=== PATIENT | female | born 1960 | race Caucasian/White ===

== ENCOUNTER 2021-01-27 06:01 | Day surgery (SDC) | payer OTHER ==
[2021-01-27] MEDS ORDERED: Lactated Ringers 1,000 ML IV SCH (06:30)
[2021-01-27] MEDS ORDERED: DIPRIVAN 200 MG/20 ML IV ONE (07:54)
[2021-01-27] MEDS ORDERED: Versed 2 MG/2 ML Injection ONE (07:56)
[2021-01-27] MEDS ORDERED: Lactated Ringers 1,000 ML IV ONE (08:01)
[2021-01-27 08:48] VITALS: O2SAT 97
[2021-01-27 08:57] VITALS: BP 149/79; PULSE 81
--- NOTE | 2021-01-27 14:12 | OP ---
SURGERY DATE/TIME: 01/27/2021 0800 PREOPERATIVE DIAGNOSIS: Screening exam. POSTOPERATIVE DIAGNOSIS: Normal colon. PROCEDURE: Colonoscopy. SURGEON: Dr. Vargas. ANESTHESIA: MAC. Medications given by anesthesia department. HISTORY: The patient is a 60-year-old white female presenting now for screening colonoscopy. She reports there is a family history of an aunt with colon cancer. The patient was felt the need to have endoscopic evaluation. She was appraised of the risks of the procedure including the risk of perforation, phlebitis, untoward reaction to medication, bleeding and missed lesions. The patient verbalized her understanding and desired to have the procedure performed. DESCRIPTION OF PROCEDURE: The patient was given the medications by the anesthesia department. She had continuous pulse oximetry, ECG monitoring, intermittent blood pressure monitoring during the examination. She was placed in the left lateral decubitus position. A digital rectal examination was performed and revealed normal anal sphincter tone and no masses. The flexible Olympus pediatric colonoscope was used to intubate the rectum. A view of the colon was developed sequentially to the cecum. Upon insertion and withdrawal, including a retroflex view in the rectum, no mucosal lesions were encountered. The scope was removed from the patient who tolerated the procedure well and was sent back to OP recovery in good condition. The prep was noted to be good.
== END 2021-01-27 09:07 | disposition home or self-care (01) ==
LOC: SDC 06:01
PROVIDERS: ATTEND Family Medicine
DX: Z12.11 Encounter for screening for malignant neoplasm of colon (principal); Z80.0 Family history of malignant neoplasm of digestive organs; E11.9 Type 2 diabetes mellitus without complications; Z79.899 Other long term (current) drug therapy
CPT/HCPCS: 82947; J2250; J2704

== ENCOUNTER 2022-08-28 06:11 | Day surgery (SDC) | payer OTHER ==
[~2022-08-28 06:11] MED LIST: Marcaine Mpf 0.5% Vial 30 Ml ONE; Xylocaine 1% Vial 30 ML PF IJ ONE
[2022-08-28] MEDS ORDERED: CEFAZOLIN 2 GM-D5W BAG** 2 GM/50 ML ML IV SCH (06:30)
[2022-08-28] MEDS ORDERED: Lactated Ringers 1,000 ML IV SCH (06:30)
[2022-08-28 06:37] LABS: Hemoglobin 12.5 g/dL (12.0-16.0); Mean Corpuscular Hemoglobin 28.9 pg (26-32); Mean Corpuscular Hgb Concent. 32.9 g/dL (32-36); Mean Platelet Volume 9.6 fL (7.5-11.0); Platelet Count 273 x10^3/uL (150-450); Red Blood Count 4.32 x10^6/uL (4.1-5.4); Red Cell Distribution Width 12.3 % (11.5-14.0); White Blood Count 10.4 x10^3/uL (4.0-10.5)
[2022-08-28 06:51] LABS: ALBUMIN 4.3 g/dL (3.5-5.0); ALKALINE PHOSPHATASE 49 U/L (38-126); ANION GAP 16.1 MEQ/L (5-15); BLOOD UREA NITROGEN 16 mg/dL (7-17); CHLORIDE 105 mmol/L (98-107); Calcium 9.1 mg/dL (8.4-10.2); Carbon Dioxide 23 mmol/L (22-30); Creatinine 1 0.59 mg/dL (0.52-1.04); EST GLOMERULAR FILTRATION RATE > 60.0 ML/MIN; Glucose 131 mg/dL (74-106); Potassium 4.1 mmol/L (3.5-5.1); SGOT/AST 30 U/L (14-36); SGPT/ALT 31 U/L (0-35); SODIUM 140 mmol/L (137-145); Total Protein 7.7 g/dL (6.3-8.2)
[2022-08-28 06:53] LABS: INR 0.91 (0.8-3.0); PTT 26.9 SECONDS (25.1-36.5)
[2022-08-28] MEDS ORDERED: DIPRIVAN 200 MG/20 ML IV ONE (07:03)
[2022-08-28] MEDS ORDERED: Versed 2 MG/2 ML Injection ONE (07:09)
[2022-08-28] MEDS ORDERED: SUBLIMAZE 100 MCG/2 ML ONE (07:10)
--- NOTE | 2022-08-28 09:08 | XRAY ---
Indication: Right great toe exostectomy with interphalangeal arthrodesis. Intraoperative fluoroscopy provided for 1 minute 5 seconds. 12 digital spot images submitted for interpretation demonstrates excision 1st IP joint medial heterotopic ossification. Ultimate arthrodesis with single screw traversing 1st IP joint. Correlate with intraoperative findings/report.
[2022-08-28 09:14] VITALS: O2SAT 94
[2022-08-28 09:16] VITALS: BP 147/98; PULSE 72
--- NOTE | 2022-08-28 10:18 | XRAY ---
One minute and 5 seconds of fluoroscopy was used in surgery for a right great toe exostectomy with interphalangeal arthrodesis.
--- NOTE | 2022-08-28 12:28 | OP ---
SURGERY DATE/TIME: 08/28/2022 0704 PREOPERATIVE DIAGNOSES: 1) Osteochondroma distal phalanx right hallux. 2) Osteoarthritis interphalangeal joint right hallux. 3) Pain right hallux. POSTOPERATIVE DIAGNOSES: 1) Osteochondroma distal phalanx right hallux. 2) Osteoarthritis interphalangeal joint right hallux. 3) Pain right hallux. 4) Tophaceous gout right interphalangeal joint. PROCEDURE: Excision of bone tumor, exostectomy distal phalanx; possible interphalangeal joint arthrodesis right great toe. SURGEON: Vargas Terrell DPM. DEPUTY COUNTY COUNSEL: None. ANESTHESIA: Monitored anesthesia care plus intraoperative block. See injectables for details. HEMOSTASIS: Ankle tourniquet set to 250 mm of Mercury for a total of 38 total tourniquet minutes. ESTIMATED BLOOD LOSS: Minimal. INJECTABLES: 10 cc of 1:1 mixture of 1% lidocaine plain and 0.5% bupivacaine plain injected in a hallux block-type fashion. INDICATION FOR SURGERY: Birgit is a very pleasant 62-year-old female well known to my practice for a significant amount of pain to the first interphalangeal joint of the right hallux. The patient had a significant amount of pain. X-rays were taken demonstrating some osteoarthritic changes to the medial aspect of the interphalangeal joint as well as what appeared to be a pedunculated stalk with a cartilaginous capped bone-like protrusion from the base of the distal phalanx and this was read to be an osteochondroma. At this time options were discussed in regards to conservative treatment. An intraarticular injection was provided into the joint which helped initially however after that was very unsuccessful and the patient had an increase in the pain afterwards. The patient opted to proceed with surgical intervention at this time understanding that there are no guarantees to the surgical outcome. All risks, benefits and complications were discussed with the patient including but not limited to infection, hematoma, seroma, possibility of delayed wound healing, nonwound healing, possibility of hardware failure, possibility of painful hardware and need for removal of hardware. There was also a possibility of infection. The patient is a diabetic but is well controlled with palpable pulses and the Doppler was biphasic to the DT and the PT. However, there can be complications as a result of the diabetes being uncontrolled or delay in the wound healing. This was all discussed with the patient preoperatively. The patient wished to proceed so we proceeded with surgical intervention at this time. DESCRIPTION OF PROCEDURE AND FINDINGS: The patient is brought into the OR and placed on the OR table in the supine position. At this time monitored anesthesia care was administered until the patient was sedated. At this time, the right ankle had a well-padded ankle tourniquet applied to the right ankle and the tourniquet set to 250 mm of Mercury. At this time, the right lower extremity was prepped and draped in the typical sterile fashion and lowered onto the surgical field. At this time an Esmarch was utilized to exsanguinate the foot. The tourniquet was set to 250 mm of Mercury. From that standpoint, a transverse incision was made over the interphalangeal joint exposing the joint immediately encountering a white chalky substance similar to that of tophaceous gout. Once the tophaceous gout was cleared out, the incision was extended to the medial aspect of the joint where the bone tumor was identified and resected. Samples of what was suspected to be tophaceous gout and the osteochondroma were handed off the field at this time. The joint was inspected. The entire medial aspect of the joint was deteriorated and showed a significant amount of osteoarthritis. At this time, an 18 mm sagittal saw was utilized to resect the head of the proximal phalanx and the base of the distal phalanx. Copious amounts of sterile saline were utilized to flush the surgical site. A 2.0 mm drill was utilized to fenestrate the bone and an osteotome was utilized to increase surface area. The position was checked under fluoroscopy and a K-wire retrograded at the tip of the toe and then back down the base of the proximal phalanx, this position was checked and deemed to be adequate. At this time, a 4.0 x 34 mm MAX VPC screw was introduced from the distal tip gaining excellent compression. Multiple views were taken and fluoroscopy and this was deemed to be in excellent position. Copious amounts of sterile saline were once again utilized to flush the surgical site. 4-0 Monocryl was utilized to coapt the subcutaneous edges in a simple buried-type fashion and then the skin was sutured utilizing 4-0 Nylon in horizontal mattress-type fashion. A dressing consisting of Betadine, Adaptic, 4x4, Kerlix and BI were applied to the patient's right lower extremity. The patient was then reversed from anesthesia and returned to the postoperative anesthesia care unit with vital signs stable and vascular status intact. The patient handled the anesthesia as well as the procedure without significant complication. Postoperative orders as indicated in the patient's discharge chart.
== END 2022-08-28 09:00 | disposition home or self-care (01) ==
LOC: SDC 06:11
PROVIDERS: ATTEND Podiatrist Foot & Ankle Surgery
DX: D16.31 Benign neoplasm of short bones of right lower limb (principal); M19.071 Primary osteoarthritis, right ankle and foot; M79.671 Pain in right foot; M1A.9XX1 Chronic gout, unspecified, with tophus (tophi); E11.9 Type 2 diabetes mellitus without complications; I10 Essential (primary) hypertension
CPT/HCPCS: 28039; 28122; 28755; 36415; 73630; 76000; 80053; 82947; 85027; 85610; 85730; C1713; J0690; J2001; J2250; J2704; J3010

== ENCOUNTER 2022-08-29 13:57 | Emergency (ER) | payer OTHER ==
--- NOTE | 2022-08-29 14:00 | ERPHSYRPT ---
- History of Present Illness Time Seen by Provider: 08/29/22 14:00 Historian: patient Exam Limitations: no limitations Physician History: This is a 62-year-old white female patient of nurse practitioner Sean who underwent right great toe bunionectomy yesterday. She states she was feeling very well yesterday and had a good meal yesterday and felt fine this morning and ate breakfast without any issues. After 9 AM this morning, she started having vomiting issues without abdominal pain. 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 She states she can only take tramadol, Tylenol and ibuprofen for pain control. She denies chest pain. She denies shortness of breath. She has had no diarrhea symptoms. However she has had several episodes of vomiting sinc e since after 9 AM this morning. Patient has a history of hyperlipidemia and arthritis. She has hypertension and diabetes. Family members ate the same breakfast as she did and have not had any vomiting issues. Timing/Duration: today Activities at Onset: none Severity of Pain-Max: none Severity of Pain-Current: none Associated Symptoms: loss of appetite, nausea, vomiting, No chest pain, No diaphoresis, No diarrhea, No fever/chills, No headache, No shortness of breath Previous symptoms: no prior history Allergies/Adverse Reactions: codeine Allergy (Severe, Verified 08/29/22 14:05) Nausea and Vomiting morphine Allergy (Severe, Verified 08/29/22 14:05) Difficulty Breathing Sulfa (Sulfonamide Antibiotics) Allergy (Intermediate, Verified 08/29/22 14:05) Rash levofloxacin [From Levaquin] Allergy (Verified 08/29/22 14:05) clarithromycin [From Biaxin] Adverse Reaction (Severe, Verified 08/29/22 14:05) Diarrhea Home Medications: Etanercept [Enbrel] 50 mg SQ WEEKLY 01/06/21 [History] Lisinopril 10 mg [Zestril 10 MG] 10 mg PO DAILY 01/06/21 [History] Metformin HCl 500 mg [Glucophage 500 MG] 1,000 mg PO BIDWM 01/06/21 [History] Pilocarpine HCl [Salagen] 5 mg PO BID 01/06/21 [History] Aspirin [Low Dose Aspirin EC] 81 mg PO DAILY 08/13/22 [History] Carvedilol 3.125 mg [Coreg 3.125 MG] 3.125 mg PO BID 08/13/22 [History] Cholecalciferol (Vitamin D3) [Vitamin D] 50,000 unit PO WEEKLY 08/13/22 [History] Dulaglutide [Trulicity] 4.5 mg SQ WEEKLY 08/13/22 [History] Alogliptin Benzoate [Alogliptin] 25 mg PO DAILY 08/28/22 [History] Evolocumab [Repatha Syringe] 140 mg SQ UD 08/28/22 [History] Insulin Glargine [Lantus Insulin] 30 unit SQ QAM 08/28/22 [History] Travel Risk - International Travel Have you traveled outside of the country in past 3 weeks: No - Coronavirus Screening Are you exhibiting any of the following symptoms?: Yes Symptoms: Vomiting/Diarrhea Close contact with a COVID-19 positive Pt in past 14-21 Days: No - Review of Systems Constitutional: No Symptoms Eyes: No Symptoms Ears, Nose, & Throat: No Symptoms Respiratory: No Symptoms Cardiac: No Symptoms Abdominal/Gastrointestinal: Nausea, Vomiting, No Abdominal Pain, No Diarrhea, No Constipation Genitourinary Symptoms: No Symptoms Musculoskeletal: No Symptoms Skin: No Symptoms Neurological: No Symptoms Psychological: No Symptoms Endocrine: No Symptoms Hematologic/Lymphatic: No Symptoms Immunological/Allergic: No Symptoms All Other Systems: Reviewed and Negative - Past Medical History Pertinent Past Medical History: Yes Neurological History: Migraines, Peripheral Neuropathy Cardiac History: Hypertension, Myocardial Infarction ([place]) Respiratory History: No Pertinent History Endocrine Medical History: Diabetes Type II Musculoskeletal History: Arthritis, Osteoarthritis Other Medical History: ENBREL 52, [place] X2, AUTOIMMUNE DISEASES MENTIONED ABOVE. - Past Surgical History Past Surgical History: Yes Female Surgical History: Hysterectomy, Section Other Surgical History: c section x3. right shoulder, left elbow and left foot surgery. - Social History Smoking Status: Never smoker Exposure to second hand smoke: No Drug Use: none - Nursing Vital Signs Nursing Vital Signs: Initial Vital Signs Pulse Rate 91 H 08/29/22 15:20 Respiratory Rate 18 08/29/22 15:20 Blood Pressure 111/59 08/29/22 15:20 O2 Sat by Pulse Oximetry 97 08/29/22 15:20 Pain Scale Pain Intensity 0 - Physical Exam General Appearance: no apparent distress, alert, anxiety, obese Eye Exam: PERRL/EOMI, eyes nml inspection Ears, Nose, Throat Exam: normal ENT inspection, moist mucous membranes Neck Exam: normal inspection, non-tender, supple, full range of motion Respiratory Exam: normal breath sounds, lungs clear, airway intact, No chest tenderness, No respiratory distress Cardiovascular Exam: regular rate/rhythm, normal heart sounds, normal peripheral pulses Gastrointestinal/Abdomen Exam: soft, normal bowel sounds, No tenderness, No guarding, No rebound Pelvic Exam: not done Rectal Exam: not done Back Exam: normal inspection, normal range of motion, No CVA tenderness, No vertebral tenderness Extremity Exam: normal inspection, normal range of motion, pelvis stable Neurologic Exam: alert, oriented x 3, cooperative, transactional attorney II-XII nml as tested, normal mood/affect, sensation nml, other (Patient has had surgery on her right great toe and she is not putting weight on that foot when ambulating) Skin Exam: normal color, warm, dry Lymphatic Exam: No adenopathy SpO2 Interpretation: normal O2 Delivery: Room Air - Course Nursing assessment & vital signs reviewed: Yes Ordered Tests: Active Orders 24 hr Category Date Time Status IV Insertion STAT Care 08/29/22 14:18 Active AMYLASE Stat Lab 08/29/22 14:30 Completed CBC W DIFF Stat Lab 08/29/22 14:30 Completed CMP Stat Lab 08/29/22 14:30 Completed LIPASE Stat Lab 08/29/22 14:30 Completed MONO SCREEN Stat Lab 08/29/22 14:45 Completed UA W/RFX UR CULTURE Stat Lab 08/29/22 14:23 Completed Medication Summary Discontinued Medications Generic Name Dose Route Start Last Admin Trade Name Kayla PRN Reason Stop Dose Admin Sodium Chloride 1,000 mls @ 999 mls/hr 08/29/22 14:18 08/29/22 15:27 Sodium Chloride 0.9% 1000 Ml IV 08/29/22 15:18 Infused .Q1H1M STA Infusion Sodium Chloride Confirm 08/29/22 14:23 Sodium Chloride 0.9% 1000 Ml Administered 08/29/22 14:24 Dose 1,000 mls @ ud .ROUTE .STK-MED ONE Ondansetron HCl 4 mg 08/29/22 14:18 08/29/22 14:25 Zofran 4 Mg/Udtablet Orally Disintegrating PO 08/29/22 14:19 4 mg STAT ONE Administration Ondansetron HCl Confirm 08/29/22 14:22 Zofran 4 Mg/Udtablet Orally Disintegrating Administered 08/29/22 14:23 Dose 4 mg .ROUTE .STK-MED ONE Pantoprazole Sodium 40 mg 08/29/22 14:18 08/29/22 14:26 Pantoprazole 40 Mg Vial IV 08/29/22 14:19 40 mg STAT ONE Administration Pantoprazole Sodium Confirm 08/29/22 14:23 Pantoprazole 40 Mg Vial Administered 08/29/22 14:24 Dose 40 mg IV .STK-MED ONE Tramadol HCl 50 mg 08/29/22 14:34 08/29/22 14:40 Tramadol Hcl 50 Mg Tablet PO 08/29/22 14:35 50 mg STAT ONE Administration Tramadol HCl Confirm 08/29/22 14:38 Tramadol Hcl 50 Mg Tablet Administered 08/29/22 14:39 Dose 50 mg .ROUTE .STK-MED ONE Lab/Rad Data: Laboratory Result Diagrams 08/29/22 14:30 08/29/22 14:30 Laboratory Results 08/29/22 08/29/22 08/29/22 Range/Units 14:55 14:45 14:30 WBC (4.0-10.5) x10^3/uL RBC (4.1-5.4) x10^6/uL Hgb (12.0-16.0) g/dL Hct (35-47) % MCV (78-100) fL MCH (26-32) pg MCHC (32-36) g/dL RDW (11.5-14.0) % Plt Count (150-450) x10^3/uL MPV (7.5-11.0) fL Gran % (36.0-66.0) % Immature Gran % (Auto) (0.00-0.4) % Nucleat RBC Rel Count (0.00-0.1) % Eos # (Auto) (0-0.5) x10^3/uL Immature Gran # (Auto) (0.00-0.03) x10^3u/L Absolute Lymphs (auto) (1.0-4.6) x10^3/uL Absolute Monos (auto) (0.0-1.3) x10^3/uL Absolute Nucleated RBC (0.00-0.01) x10^3u/L Lymphocytes % (24.0-44.0) % Monocytes % (0.0-12.0) % Eosinophils % (0.00-5.0) % Basophils % (0.0-0.4) % Absolute Granulocytes (1.4-6.9) x10^3/uL Basophils # (0-0.4) x10^3/uL Sodium 141 (137-145) mmol/L Potassium 4.7 (3.5-5.1) mmol/L Chloride 101 (98-107) mmol/L Carbon Dioxide 30 (22-30) mmol/L Anion Gap 15.4 H (5-15) MEQ/L BUN 15 (7-17) mg/dL Creatinine 0.82 (0.52-1.04) mg/dL Estimated GFR > 60.0 ML/MIN Glucose 118 H (74-106) mg/dL Calcium 9.6 (8.4-10.2) mg/dL Total Bilirubin 0.60 (0.2-1.3) mg/dL AST 28 (14-36) U/L ALT 33 (0-35) U/L Alkaline Phosphatase 56 (38-126) U/L Serum Total Protein 9.0 H (6.3-8.2) g/dL Albumin 4.9 (3.5-5.0) g/dL Amylase 66 (30-110) U/L Lipase 230 (23-300) U/L Urine Color (Yellow) Urine Appearance (Clear) Urine pH (4.6-8.0) Ur Specific [place] (1.005-1.030) Urine Protein (Negative) Urine Glucose (UA) (Negative) mg/dL Urine Ketones (Negative) Urine Blood (Negative) Urine Nitrite (Negative) Urine Bilirubin (Negative) Urine Urobilinogen (0.2) mg/dL Ur Leukocyte Esterase (Negative) U Hyaline Cast (Auto) (0-2) /LPF Urine Microscopic RBC (0-5) /HPF Urine Microscopic WBC (0-5) /HPF Ur Epithelial Cells (None Seen) /HPF Urine Bacteria (None Seen) /HPF Urine Culture Reflexed (NO) Monoscreen NEGATIVE (NEGATIVE) Influenza Type A Ag NEGATIVE (NEGATIVE) Influenza Type B Ag NEGATIVE (NEGATIVE) RSV (PCR) NEGATIVE (NEGATIVE) SARS-CoV-2 (PCR) NEGATIVE (NEGATIVE) 08/29/22 08/29/22 Range/Units 14:30 14:23 WBC 14.3 H (4.0-10.5) x10^3/uL RBC 4.92 (4.1-5.4) x10^6/uL Hgb 14.5 (12.0-16.0) g/dL Hct 43.6 (35-47) % MCV 88.6 (78-100) fL MCH 29.5 (26-32) pg MCHC 33.3 (32-36) g/dL RDW 12.7 (11.5-14.0) % Plt Count 323 (150-450) x10^3/uL MPV 10.1 (7.5-11.0) fL Gran % 77.8 H (36.0-66.0) % Immature Gran % (Auto) 0.7 H (0.00-0.4) % Nucleat RBC Rel Count 0.0 (0.00-0.1) % Eos # (Auto) 0.14 (0-0.5) x10^3/uL Immature Gran # (Auto) 0.10 H (0.00-0.03) x10^3u/L Absolute Lymphs (auto) 2.00 (1.0-4.6) x10^3/uL Absolute Monos (auto) 0.89 (0.0-1.3) x10^3/uL Absolute Nucleated RBC 0.00 (0.00-0.01) x10^3u/L Lymphocytes % 14.0 L (24.0-44.0) % Monocytes % 6.2 (0.0-12.0) % Eosinophils % 1.0 (0.00-5.0) % Basophils % 0.3 (0.0-0.4) % Absolute Granulocytes 11.08 H (1.4-6.9) x10^3/uL Basophils # 0.04 (0-0.4) x10^3/uL Sodium (137-145) mmol/L Potassium (3.5-5.1) mmol/L Chloride (98-107) mmol/L Carbon Dioxide (22-30) mmol/L Anion Gap (5-15) MEQ/L BUN (7-17) mg/dL Creatinine (0.52-1.04) mg/dL Estimated GFR ML/MIN Glucose (74-106) mg/dL Calcium (8.4-10.2) mg/dL Total Bilirubin (0.2-1.3) mg/dL AST (14-36) U/L ALT (0-35) U/L Alkaline Phosphatase (38-126) U/L Serum Total Protein (6.3-8.2) g/dL Albumin (3.5-5.0) g/dL Amylase (30-110) U/L Lipase (23-300) U/L Urine Color Yellow (Yellow) Urine Appearance Clear (Clear) Urine pH 5.5 (4.6-8.0) Ur Specific [place] 1.020 (1.005-1.030) Urine Protein 30 (Negative) Urine Glucose (UA) Negative (Negative) mg/dL Urine Ketones Negative (Negative) Urine Blood Negative (Negative) Urine Nitrite Negative (Negative) Urine Bilirubin Negative (Negative) Urine Urobilinogen 0.2 (0.2) mg/dL Ur Leukocyte Esterase Negative (Negative) U Hyaline Cast (Auto) 3-5 A (0-2) /LPF Urine Microscopic RBC 0-2 (0-5) /HPF Urine Microscopic WBC 6-10 A (0-5) /HPF Ur Epithelial Cells Rare (None Seen) /HPF Urine Bacteria None Seen (None Seen) /HPF Urine Culture Reflexed NO (NO) Monoscreen (NEGATIVE) Influenza Type A Ag (NEGATIVE) Influenza Type B Ag (NEGATIVE) RSV (PCR) (NEGATIVE) SARS-CoV-2 (PCR) (NEGATIVE) - Progress Progress: improved, re-examined Progress Note: 08/29/22 15:52 Patient's medical issues 1 of moderate complexity. Level of complexity in the work-up performed is based on review of the patient's past medical history, review of the patient's medication list, review of the patient drug allergy list, history of present illness and physical findings on examination. The work-up in this patient includes a CBC, CMP, amylase, lipase, intravenous line placement with infusion of 1 L of normal saline solution and Zofran 4 mg intravenously. We also provide the patient with tramadol 50 mg x 1 dose orally here in the emergency department. Patient states that she can only take tramadol, ibuprofen and Tylenol for pain control. She is wondering if the [place] 5/325 occasion she was prescribed postoperatively is what made her nauseated. She states that she is feeling very good at this time. I reviewed the results of this work-up. Patient does have leukocytosis but this could be from multiple episodes of vomiting prior to arrival. Her vital signs are stable. She would like a prescription for tramadol and Zofran sent to her pharmacy in [facility]. Counseled pt/family regarding: lab results, diagnosis, need for follow-up Medical Desision Making - Independent Historian Additional History obtained from: Family - Diagnostic Testing Diagnostic test were ordered, analyzed, and reviewed by me: Yes - Risk of complications The pt has a mod risk of morbidity or mortality based on: Need for prescription drug management - Departure Departure Disposition: Home Clinical Impression: Postoperative vomiting Condition: Stable Critical Care Time: No Referrals: GAURAV TREVIÑO, SUPPLY PERSON [Primary Care Provider] - Follow up/PCP as directed Additional Instructions: Drink plenty of clear liquids. Stop your [place] pain medication. Use your new pain medicine prescription. Follow-up with your prescribing physicians/hira alejandro on 08/31/2022 for further evaluation management. Prescriptions: Ondansetron ODT 4 MG [Zofran Odt 4 mg] 4 mg PO Q6H PRN PRN #10 tablet PRN Reason: Vomiting Tramadol HCl 50 mg [Ultram 50 mg] 50 mg PO TID PRN #9 tablet MDD 3 PRN Reason: Moderate To Severe Pain
[2022-08-29] MEDS ORDERED: ZOFRAN ODT 4 MG PO ONE (14:18)
[2022-08-29] MEDS ORDERED: Sodium Chloride 0.9% 1000 ML 1,000 ML IV STA (14:18)
[2022-08-29] MEDS ORDERED: PROTONIX 40 MG IV IV ONE ×2 (14:18→14:23)
[2022-08-29] MEDS ORDERED: ZOFRAN ODT 4 MG ONE (14:22)
[2022-08-29] MEDS ORDERED: Sodium Chloride 0.9% 1000 ML 1,000 ML ONE (14:23)
[2022-08-29 14:32] LABS: Absolute Neutrophil Ct (ANC) 11.08 x10^3/uL (1.4-6.9); BASOPHIL % 0.3 % (0.0-0.4); Basophil (Absolute #) 0.04 x10^3/uL (0-0.4); Eosinophil (Absolute #) 0.14 x10^3/uL (0-0.5); Hematocrit 43.6 % (35-47); Hemoglobin 14.5 g/dL (12.0-16.0); IMMATURE GRAN % 0.7 % (0.00-0.4); Mean Cell Volume 88.6 fL (78-100); Mean Corpuscular Hemoglobin 29.5 pg (26-32); Mean Corpuscular Hgb Concent. 33.3 g/dL (32-36); Mean Platelet Volume 10.1 fL (7.5-11.0); Monocyte (Absolute #) 0.89 x10^3/uL (0.0-1.3); Monocytes % 6.2 % (0.0-12.0); Neutrophil % 77.8 % (36.0-66.0); Platelet Count 323 x10^3/uL (150-450); Red Blood Count 4.92 x10^6/uL (4.1-5.4); Red Cell Distribution Width 12.7 % (11.5-14.0); White Blood Count 14.3 x10^3/uL (4.0-10.5)
[2022-08-29] MEDS ORDERED: ULTRAM 50 MG PO ONE (14:34)
[2022-08-29] MEDS ORDERED: ULTRAM 50 MG ONE (14:38)
[2022-08-29 14:49] LABS: ALBUMIN 4.9 g/dL (3.5-5.0); ALKALINE PHOSPHATASE 56 U/L (38-126); AMYLASE 66 U/L (30-110); ANION GAP 15.4 MEQ/L (5-15); BLOOD UREA NITROGEN 15 mg/dL (7-17); CHLORIDE 101 mmol/L (98-107); Calcium 9.6 mg/dL (8.4-10.2); Carbon Dioxide 30 mmol/L (22-30); Creatinine 1 0.82 mg/dL (0.52-1.04); EST GLOMERULAR FILTRATION RATE > 60.0 ML/MIN; Glucose 118 mg/dL (74-106); LIPASE 230 U/L (23-300); Potassium 4.7 mmol/L (3.5-5.1); SGOT/AST 28 U/L (14-36); SGPT/ALT 33 U/L (0-35); SODIUM 141 mmol/L (137-145)
[2022-08-29 15:06] LABS: Bacteria None Seen /HPF (None Seen); Bilirubin Negative (Negative); Blood Negative (Negative); Epithelial Cells Rare /HPF (None Seen); Glucose, Urine Negative (Negative); Ketones Negative (Negative); Leukocyte Esterase Negative (Negative); Nitrite Negative (Negative); Ph 5.5 (4.6-8.0); Protein,Urine Dip 30 (Negative); RBC 0-2 /HPF (0-5); Urobilinogen 0.2 mg/dL (0.2)
[2022-08-29 15:07] LABS: Appearance Clear (Clear)
[2022-08-29 15:08] LABS: ADD URINE CULTURE? NO (NO)
[2022-08-29 15:21] VITALS: BP 111/59; PULSE 91; O2SAT 97
[2022-08-29 15:32] LABS: INFLUENZA A NEGATIVE (NEGATIVE); INFLUENZA B NEGATIVE (NEGATIVE); RESPIRATORY SYNCTIAL VIRUS NEGATIVE (NEGATIVE); SARS-CoV-2 Xpert Express NEGATIVE (NEGATIVE)
== END 2022-08-29 16:12 | disposition home or self-care (01) ==
LOC: ED 13:57
DX: T81.89XA Other complications of procedures, not elsewhere classified, initial encounter (principal); R11.2 Nausea with vomiting, unspecified; I10 Essential (primary) hypertension; E11.42 Type 2 diabetes mellitus with diabetic polyneuropathy; Z79.84 Long term (current) use of oral hypoglycemic drugs; Z79.85 Long-term (current) use of injectable non-insulin antidiabetic drugs; Z79.4 Long term (current) use of insulin; Z79.891 Long term (current) use of opiate analgesic; Z79.899 Other long term (current) drug therapy
CPT/HCPCS: 0241U; 36000; 36415; 80053; 81001; 82150; 83690; 85025; 86308; 96374; 99284; Q0162; A9270-GY

== ENCOUNTER 2025-01-25 07:20 | Day surgery (SDC) | payer OTHER ==
[2025-01-25] MEDS ORDERED: methylPREDNISolone acetate IM ONE (07:21)
[2025-01-25] MEDS ORDERED: LIDOCAINE HCL 2% 100 MG/5 ML IJ ONE (07:21)
[2025-01-25] MEDS ORDERED: propofoL IV ONE (09:19)
[2025-01-25] MEDS ORDERED: Lactated Ringers 1,000 ML IV ONE (09:48)
--- NOTE | 2025-01-25 10:43 | XRAY ---
Indication: Bilateral L4-S1 MBB. Intraoperative fluoroscopy provided for 10 seconds. Single digital spot image submitted for interpretation demonstrates posterior needle tips projecting over expected left and right L4-S1 nerve roots. Correlate with intraoperative findings/report.
--- NOTE | 2025-01-25 10:51 | XRAY ---
10 seconds of fluoroscopy was used in surgery for a bilateral L4-S1 MBB.
== END 2025-01-25 09:55 | disposition home or self-care (01) ==
LOC: SDC-PAIN 07:20
PROVIDERS: ATTEND Psychiatry & Neurology Pain Medicine
DX: M47.817 Spondylosis without myelopathy or radiculopathy, lumbosacral region (principal); E11.9 Type 2 diabetes mellitus without complications